=== PATIENT | female | born 1985 | race Caucasian/White ===

== ENCOUNTER 2025-07-22 08:24 | Inpatient (IN) | payer MEDICAID, OTHER ==
[~2025-07-22] VITALS: Ht 147.3 cm; Wt 87.0 kg
[2025-07-22 08:59] LABS: Hematocrit 42.1 % (36.0-46.0); Hemoglobin 14.0 g/dL (12.2-16.2); Mean Corpuscular Hemoglobin 31.9 pg (28.0-32.0); Mean Corpuscular Volume 95.6 fL (80.0-100.0); Nucleated Red Blood Cells % 0.0 %
[2025-07-22 09:07] LABS: Urine Protein, UAD TRACE (Negative)
[2025-07-22 09:08] LABS: Potassium 3.7 mmol/L (3.5-5.1); Sodium 144 mmol/L (136-145)
[2025-07-22 09:09] LABS: Anion Gap 10 (5-15); Calcium 9.1 mg/dL (8.7-10.4); Carbon Dioxide 24 mmol/L (20-31)
--- NOTE | 2025-07-22 09:09 | ED.PDOC ---
General HPI Comments A 39 YEAR OLD FEMALE PRESENTS TO THE ED WITH COMPLAINT OF FLANK PAIN. PATIENT REPORTS THAT SHE HAS BEEN EXPERIENCING RIGHT SIDED FLANK PAIN WITH ASSOCIATED RUQ ABDOMINAL PAIN, DECREASED URINE OUTPUT, AND DYSURIA FOR THE PAST 1-2 WEEKS ALONG WITH NAUSEA/VOMITING SINCE 1AM THIS MORNING. PATIENT RELAYS THAT SHE WAS DIAGNOSED WITH PYELONEPHRITIS ON SUNDAY AT URGENT CARE. PATIENT DENIES FEVER, CHILLS, SHORTNESS OF BREATH, CHEST PAIN, HEMATURIA, HEADACHE, OR OTHER COMPLAINTS. NO OTHER SYMPTOMS OR MODIFYING FACTORS AT THIS TIME. PATIENT IS ALERT, ORIENTED X 4, AND HAS STEADY GAIT. Chief Complaint: Flank Pain Time Seen by MD: 09:05 Reviewed notes: Nurses Notes, Medications, Allergies Allergies: Coded Allergies: NO KNOWN ALLERGIES (Unverified , 07/22/25) Information Source: Patient Mode of Arrival: Ambulatory Severity: Moderate Timing: Weeks Duration: Since onset Prehospital treatment: None Onset: Spontaneous Symptoms: Dysuria History of: Other (PYELONEPHRITIS) Location: (R) Flank associated signs and symptoms: Abdominal Pain, Nausea, Vomiting, Flank Pain, Dysuria Past Medical History PAST MEDICAL HISTORY: Gallstones, HTN Surgical History: Denies all surgeries DEBT AND BUDGET COUNSELOR History: No Pertinent DEBT AND BUDGET COUNSELOR History Family History Family History: Reviewed,noncontributory to illness Social History Smoker: Non-Smoker Alcohol: Denies ETOH Use Drugs: Denies Drug Use Lives In: Home Constitutional: denies: chills, diaphoresis, fatigue, fever, malaise, sweats, weakness, others EENTM: denies: blurred vision, double vision, ear bleeding, ear discharge, ear drainage, ear pain, ear ringing, eye pain, eye redness, hearing loss, mouth pain, mouth swelling, nasal discharge, nose bleeding, nose congestion, nose pain, photophobia, tearing, throat pain, throat swelling, voice changes, others Respiratory: denies: cough, hemoptysis, orthopnea, SOB at rest, shortness of breath, SOB with excertion, stridor, wheezing, others Cardiovascular: denies: chest pain, dizzy spells, diaphoresis, Dyspnea on exertion, edema, irregular heart beat, left arm pain, lightheadedness, palpitations, PND, syncope, others Gastrointestinal: reports: abdominal pain, nausea, vomiting; denies: abdomen distended, blood streaked bowels, constipated, diarrhea, dysphagia, difficulty swallowing, hematemesis, melena, poor appetite, poor fluid intake, rectal bleeding, rectal pain, others Genitourinary: reports: dysuria, flank pain, frequency; denies: abnormal vagina bleeding, burning, dyspareunia, hematuria, incontinence, pain, , vagina discharge, urgency, others Neurological: denies: dizziness, fainting, headache, left sided numbness, left sided weakness, numbness, paresthesia, pre-existing deficit, right sided numbne ss, right sided weakness, seizure, speech problems, tingling, tremors, weakness, others Musculoskeletal: denies: back pain, gout, joint pain, joint swelling, muscle pain, muscle stiffness, neck pain, others Integumetry: denies: bruises, change in color, change in hair/nails, dryness, laceration, lesions, lumps, rash, wounds, others Allergic/Immunocompromised: denies: Difficulty Healing, Frequent Infections, Hives, Itching, others Hematologic/Lymphatic: denies: anemia, blood clots, easy bleeding, easy bruising, swollen glands, others Endocrine: denies: excessive hunger, excessive sweating, excessive thirst, excessive urination, flushing, intolerance to cold, intolerance to heat, unexplained weight gain, unexplained weight loss, others Psychiatric: denies: anxiety, bipolar disorder, depression, hopeless, panic disorder, schizophrenia, sleepless, suicidal, others All Other Systems: Reviewed and Negative Physical Exam General Appearance: Mild Distress, Normal HEENT: Normal ENT Inspection, PERRL/EOMI, Pharynx Normal, TMs Normal Neck: Full Range of Motion, Non-Tender, Normal, Normal Inspection Respiratory: Chest Non-Tender, Lungs Clear, No Accessory Muscle Use, No Respiratory Distress, Normal Breath Sounds Cardiovascular: No Edema, No JVD, No Murmur, No Gallop, Normal Peripheral Pulses, Regular Rate/Rhythm Breast Exam: Deferred Gastrointestinal: No Organomegaly, No Pulsatile Mass, Normal Bowel Sounds, Soft, Tenderness (RIGHT FLANK TO RIGHT UPPER ABD WITH GUARDING, NO REBOUND TENDERNESS, +CVA TENDERNESS. ) Genitalia: Deferred Pelvic: Normal External Exam Rectal: Deferred Extremities: No calf tenderness, Normal capillary refill, Normal inspection, Normal range of motion, Non-tender, No pedal edema Musculoskeletal : Apperance: Normal Neurologic: Alert, statement services representative II-XII nml as Tested, No Motor Deficits, Normal Affect, Normal Mood, No Sensory Deficits Cerebellar Function: Normal Reflexes: Normal Skin: Dry, Normal Color, Warm Peripheral Pulses: 2+ carotid (R), 2+ carotid (L) Lymphatic: No Adenopathy Was a procedure done? Was a procedure done?: No Differential Diagnosis Kidney stone (Female): Pyelonephritis, Urolithiasis Kidney stone (Male): N/A Urinary Problem (Female): Pyelonephritis, Urolithiasis, UTI X-Ray, Labs, Meds, VS Vital Signs Date Time Temp Pulse Resp B/P (MAP) Pulse Ox O2 Delivery O2 Flow Rate FiO2 07/22/25 10:30 66 18 171/101 07/22/25 10:21 175/101 07/22/25 10:21 175/101 07/22/25 10:06 97.7 66 18 175/101 (125) 98 97.7 07/22/25 08:27 97.6 82 18 157/98 100 97.6 Lab Test 07/22/25 09:44 07/22/25 08:48 07/22/25 08:42 Range/Units Lactic Acid Level 1.5 0.4-2.0 mmol/L White Blood Count 21.3 H 4.4-10.8 10^3/uL Red Blood Count 4.40 4.0-5.20 10^6/uL Hemoglobin 14.0 12.2-16.2 g/dL Hematocrit 42.1 36.0-46.0 % Mean Corpuscular Volume 95.6 80.0-100.0 fL Mean Corpuscular Hemoglobin 31.9 28.0-32.0 pg Mean Corpuscular Hemoglobin Concent 33.3 32.0-36.0 g/dL Red Cell Distribution Width 14.8 H 11.8-14.3 % Platelet Count 577 H 140-450 10^3/uL Mean Platelet Volume 5.9 L 6.9-10.8 fL Neutrophils (%) (Auto) 83.8 H 37.0-80.0 % Lymphocytes (%) (Auto) 9.6 L 10.0-50.0 % Monocytes (%) (Auto) 5.9 0.0-12.0 % Eosinophils (%) (Auto) 0.4 0.0-7.0 % Basophils (%) (Auto) 0.3 0.0-2.0 % Neutrophils # (Auto) 17.8 H 1.6-8.6 10 ^3/uL Lymphocytes # (Auto) 2.1 0.4-5.4 10 ^3/uL Monocytes # (Auto) 1.3 0-1.3 10 ^3/uL Eosinophils # (Auto) 0.1 0-0.8 10 ^3/uL Basophils # (Auto) 0.1 0-0.2 10 ^3/uL Nucleated Red Blood Cells 0.0 % Sodium Level 142 136-145 mmol/L Potassium Level 3.7 3.5-5.1 mmol/L Chloride Level 111 H 98-107 mmol/L Carbon Dioxide Level 23 20-31 mmol/L Anion Gap 8 5-15 Blood Urea Nitrogen 9 9-23 mg/dL Creatinine 1.08 H 0.550-1.02 mg/dL Glomerular Filtration Rate Calc 66 >90 mL/min BUN/Creatinine Ratio 8.3 L 10.0-20.0 Serum Glucose 94 74-106 mg/dL Calcium Level 9.1 8.7-10.4 mg/dL Total Bilirubin 0.4 0.2-1.0 mg/dL Aspartate Amino Transferase (AST) 18 13-40 U/L Alanine Aminotransferase (ALT) 12 7-40 U/L Alkaline Phosphatase 106 46-116 U/L Total Protein 7.3 5.7-8.2 g/dL Albumin 4.7 3.2-4.8 g/dL Urine Color Light-orange Yellow Urine Clarity Turbid H Clear Urine pH 6.0 5.0-9.0 Urine Specific [place] 1.022 1.001-1.035 Urine Protein Trace H Negative Urine Ketones Negative Negative Urine Blood 3+ H Negative /uL Urine Nitrite Negative Negative Urine Bilirubin Negative Negative Urine Urobilinogen Normal Negative mg/dL Urine Leukocyte Esterase 1+ Negative /uL Urine RBC 108 0 - 4 /hpf Urine Microscopic WBC 25 H 0-5 /HPF Urine Squamous Epithelial Cells Mod <5 /hpf Urine Bacteria Mod H None Seen /hpf Urine Mucus Few None Seen Urine Glucose Normal Normal mg/dL Current Medications Medications (Trade) Dose Ordered Sig/Davina Route Start Time Stop Time Status Last Admin Sodium Chloride 1,000 ml @ 1,000 mls/hr Q1H ONCE IV 07/22/25 09:30 07/22/25 10:29 DC 07/22/25 10:30 Ondansetron HCl (Zofran) 4 mg ONCE ONCE IV 07/22/25 09:30 07/22/25 09:31 DC 07/22/25 10:29 Morphine Sulfate 4 mg ONCE ONCE IV 07/22/25 10:15 07/22/25 10:16 DC 07/22/25 10:30 Ceftriaxone Sodium 50 ml @ 100 mls/hr ONCE ONCE IV 07/22/25 10:15 07/22/25 10:44 DC 07/22/25 10:28 Losartan Potassium (Cozaar Tablet) 100 mg ONCE ONCE PO 07/22/25 10:15 07/22/25 10:16 DC 07/22/25 10:21 Hydrochlorothiazide (hydroCHLOROthiazide TABLET) 25 mg ONCE ONCE PO 07/22/25 10:15 07/22/25 10:16 DC 07/22/25 10:21 Tamsulosin HCl (Flomax) 0.8 mg ONCE ONCE PO 07/22/25 11:00 07/22/25 11:01 DC 07/22/25 11:17 [place] [address] Ph: [phone] DIAGNOSTIC IMAGING Diagnostic Imaging Report : [id number] Signed PATIENT: AN IBARRA ACCT: [id number] UNIT: [id number] : 1985 LOC: ER ROOM / BED: / AGE / SEX: 39 / F ADM STATUS: REG ER SERVICE 0904 ORDERING PHYSICIAN: VALENTIN MOJICA PROCEDURE(s): ABPL - CT AB PEL WO CON-NO ORAL OR IV REASON: RIGHT FLANK PAIN ORDER NUMBER(s): [id number], ACCESSION NUMBER(s): [id number] EXAM: CT CT AB PEL WO CON-NO ORAL OR IV HISTORY: RIGHT FLANK PAIN COMPARISON STUDY: None TECHNIQUE: Multidetector CT of the abdomen and pelvis was performed from lung bases to pubic symphysis. Imaging was performed without IV contrast. Axial, coronal, and sagittal multiplanar reformats were obtained from the axial data set by the technologist. RADIATION DOSE: CTDI vol 15.4 mGy. DLP 841.5 mGy.cm FINDINGS: Limited evaluation of the solid organs in the absence of IV contrast. Lungs: Basilar atelectasis/scarring. Liver: Unremarkable. Spleen: Unremarkable. Pancreas: Unremarkable. Gallbladder: Unremarkable. Adrenals: Unremarkable Kidneys: 3 mm calculus situated within the distal right ureter near the ureterovesicular junction with mild upstream hydroureteronephrosis and mild right perinephric stranding. Punctate nonobstructing right renal calculus. The left kidney is unremarkable. Pelvic Viscera: Unremarkable. Vasculature: Unremarkable. Retroperitoneum: Unremarkable. Bowel: No bowel obstruction. The appendix is normal. Musculoskeletal: Unremarkable. Soft tissues: Small fat containing umbilical hernia with minimal stranding. IMPRESSION: 1. 3 mm calculus situated within the distal right ureter near the ureterovesicular junction with mild upstream hydroureteronephrosis and mild right perinephric stranding. 2. Punctate nonobstructing right renal calculus. 3. Additional findings as detailed. ATED BY: FAIZAN WOODS MD DICTATED DATE/TIME: 07/22/25957 SIGNED BY: FAIZAN WOODS MD SIGNED DATE/TIME: 07/22/25957 CC: X-Ray, Labs, Meds, VS Comment EXTERNAL MEDICAL RECORDS REVIEWED: [NONE] INDEPENDENT HISTORIANS: [NONE] SOCIAL DETERMINANTS OF HEALTH: [NONE] LABS ORDERED: CBC, BMP, UA, URINE CULTURE, BLOOD CULTURE REVIEWED AND INTERPRETED RESULTS: CT ABD/PEL IMAGING ORDERED: CT ABD/PEL TREATMENTS ORDERED: ZOFRAN 4MG IV, NS 1L IV, MORPHINE 4MG IV, ROCEPHIN 1G IV, TORADOL 30MG IVP PROCEDURES PERFORMED: NONE CRITICAL CARE TIME: NONE I HAVE DISCUSSED THE PATIENT WITH THE ATTENDING PHYSICIAN DR. HUDDLESTON AND HE AGREES WITH THE PATIENT'S PLAN OF CARE AND DISPOSITION. BASED ON HISTORY OF PRESENT ILLNESS, AND PHYSICAL EXAM, PATIENT WILL BE ADMITTED TO THE HOSPITAL FOR FURTHER IN-PATIENT EVALUATION AND TREATMENT. Time of 1ST Reevaluation: 09:30 Reevaluation 1ST: Unchanged Time of 2ND Reevaluation: 10:00 Reevaluation 2ND: Unchanged Patient Education/Counseling: Diagnosis, Treatment Family Education/Counseling: Diagnosis, Treatment, No Family Present SEPSIS Sepsis Screen Date sepsis recognized/suspect: Jul 22, 2025 Time Sepsis recognized/suspect: 826 Recent Procedure: No On Antibiotic Therapy: Yes (CIPRO) Respiratory Rate >20: No Heart Rate >90: No Temp<36 C (96.8 F) or >38.3 C: No SBP <90 or MAP <65 mmHG: No New Acute Mental Status Change: No Is the patient on CPAP, BIPAP,: No Physician Orders Ct Ab Pel Wo Con-No Oral Or Iv (07/22/25 09:04) Heplock Iv (07/22/25 ) Blood Culture (07/22/25 09:22) Urine Bacterial Culture (07/22/25 09:22) Vital Signs Date Time Temp Pulse Resp B/P (MAP) Pulse Ox O2 Delivery O2 Flow Rate FiO2 07/22/25 10:30 66 18 171/101 07/22/25 10:21 175/101 07/22/25 10:21 175/101 07/22/25 10:06 97.7 66 18 175/101 (125) 98 97.7 07/22/25 08:27 97.6 82 18 157/98 100 97.6 Laboratory Tests Test 07/22/25 08:48 07/22/25 09:44 White Blood Count 21.3 10^3/uL (4.4-10.8) H Lactic Acid Level 1.5 mmol/L (0.4-2.0) Medications Medications Dose Ordered Sig/Davina Route Start Time Stop Time Status Last Admin Dose Admin Ceftriaxone Sodium 50 ml @ 100 mls/hr ONCE ONCE IV 07/22/25 10:15 07/22/25 10:44 DC 07/22/25 10:28 Hydrochlorothiazide 25 mg ONCE ONCE PO 07/22/25 10:15 07/22/25 10:16 DC 07/22/25 10:21 Losartan Potassium 100 mg ONCE ONCE PO 07/22/25 10:15 07/22/25 10:16 DC 07/22/25 10:21 Morphine Sulfate 4 mg ONCE ONCE IV 07/22/25 10:15 07/22/25 10:16 DC 07/22/25 10:30 Ondansetron HCl 4 mg ONCE ONCE IV 07/22/25 09:30 07/22/25 09:31 DC 07/22/25 10:29 Sodium Chloride 1,000 ml @ 1,000 mls/hr Q1H ONCE IV 07/22/25 09:30 07/22/25 10:29 DC 07/22/25 10:30 Tamsulosin HCl 0.8 mg ONCE ONCE PO 07/22/25 11:00 07/22/25 11:01 DC 07/22/25 11:17 Departure 1 Departure Time of Disposition: 10:05 Impression: Primary Impression: Acute pyelonephritis Additional Impressions: Kidney stone Hydroureteronephrosis Disposition: ADMITTED INPATIENT Condition: Serious Critical Care Note Critical Care Time?: No Stability Stability form required: No Heart Score Heart Score: Heart Score Response (Comments) Value History N/A 0 EKG N/A 0 Age N/A 0 Risk Factors N/A 0 Troponin N/A 0 Total 0 I personally scribed for VALENTIN MOJICA ([email or web address]) on 07/22/25 at 09:09. Electronically submitted by Jameel Soto ([email or web address]). I personally scribed for VALENTIN MOJICA ([email or web address]) on 07/22/25 at 10:05. Electronically submitted by Jameel Soto ([email or web address]). VALENTIN MOJICA Jul 22, 2025 09:09
[2025-07-22 09:10] LABS: Chloride 110 mmol/L (98-107)
[2025-07-22 09:14] LABS: BUN/Creatinine Ratio 8.4 (10.0-20.0); Blood Urea Nitrogen 9 mg/dL (9-23); Glucose 94 mg/dL (74-106)
[2025-07-22] MEDS ORDERED: KETOROLAC TROMETH 30 MG/ML 1ML VIAL IV ONE (09:30)
[2025-07-22 09:42] LABS: Alanine Aminotransferase 12 U/L (7-40); Albumin 4.7 g/dL (3.2-4.8); Alkaline Phosphatase 106 U/L (46-116); Anion Gap 8 (5-15); BUN/Creatinine Ratio 8.3 (10.0-20.0); Bilirubin, Total 0.4 mg/dL (0.2-1.0); Blood Urea Nitrogen 9 mg/dL (9-23); Calcium 9.1 mg/dL (8.7-10.4); Carbon Dioxide 23 mmol/L (20-31); Glucose 94 mg/dL (74-106); Potassium 3.7 mmol/L (3.5-5.1); Sodium 142 mmol/L (136-145); Total Protein 7.3 g/dL (5.7-8.2)
[2025-07-22 09:45] LABS: Chloride 111 mmol/L (98-107)
--- NOTE | 2025-07-22 10:00 | DVH ---
EXAM: CT CT AB PEL WO CON-NO ORAL OR IV HISTORY: RIGHT FLANK PAIN COMPARISON STUDY: None TECHNIQUE: Multidetector CT of the abdomen and pelvis was performed from lung bases to pubic symphysis. Imaging was performed without IV contrast. Axial, coronal, and sagittal multiplanar reformats were obtained from the axial data set by the technologist. RADIATION DOSE: CTDI vol 15.4 mGy. DLP 841.5 mGy.cm FINDINGS: Limited evaluation of the solid organs in the absence of IV contrast. Lungs: Basilar atelectasis/scarring. Liver: Unremarkable. Spleen: Unremarkable. Pancreas: Unremarkable. Gallbladder: Unremarkable. Adrenals: Unremarkable Kidneys: 3 mm calculus situated within the distal right ureter near the ureterovesicular junction with mild upstream hydroureteronephrosis and mild right perinephric stranding. Punctate nonobstructing right renal calculus. The left kidney is unremarkable. Pelvic Viscera: Unremarkable. Vasculature: Unremarkable. Retroperitoneum: Unremarkable. Bowel: No bowel obstruction. The appendix is normal. Musculoskeletal: Unremarkable. Soft tissues: Small fat containing umbilical hernia with minimal stranding. IMPRESSION: 1. 3 mm calculus situated within the distal right ureter near the ureterovesicular junction with mild upstream hydroureteronephrosis and mild right perinephric stranding. 2. Punctate nonobstructing right renal calculus. 3. Additional findings as detailed.
[2025-07-22] MEDS: hydroCHLOROthiazide 25 MG TAB PO ONE ×2 (10:21→14:46)
[2025-07-22] MEDS: LOSARTAN POTASSIUM 50 MG TAB PO ONE ×2 (10:21→13:33)
[2025-07-22] MEDS: ONDANSETRON HCL 4 MG/2 ML VIAL IV ONE (10:29)
[2025-07-22] MEDS: SODIUM CHLORIDE 0.9% 1,000 ML IV ONE ×3 (10:30→12:30)
[2025-07-22] MEDS: MORPHINE SULFATE 4 MG/ML SYR/VIAL IV ONE (10:30)
[2025-07-22] MEDS: TAMSULOSIN HYDROCHLORIDE 0.4 MG CAP PO ONE (11:17)
[2025-07-22] MEDS ORDERED: TIZA-142 PO (13:01)
[2025-07-22] MEDS ORDERED: DULO1CAP5 PO (13:01)
[2025-07-22] MEDS ORDERED: LAMO100T44 PO (13:01)
[2025-07-22] MEDS ORDERED: LORA-1121 PO (13:01)
[2025-07-22] MEDS ORDERED: ATOG60TA PO (13:01)
[2025-07-22] MEDS ORDERED: ATOR20TA50 PO (13:01)
[2025-07-22] MEDS ORDERED: HYDR50TA69 PO (13:01)
[2025-07-22] MEDS ORDERED: BUSP30TA PO (13:01)
[2025-07-22] MEDS ORDERED: GABA-1250 PO (13:01)
[2025-07-22] MEDS ORDERED: HYDR25TA5 PO (13:01)
[2025-07-22] MEDS ORDERED: VERA80TA4 PO (13:01)
[2025-07-22] MEDS ORDERED: OMEP-448 PO (13:01)
[2025-07-22] MEDS ORDERED: [UNRECOGNIZED DRUG - CODE] PO (13:01)
[2025-07-22] MEDS ORDERED: LOSA-535 PO (13:01)
--- NOTE | 2025-07-22 13:11 | DVHHP2 ---
History of Present Illness Reason for Visit: Abdominal pain History of Present Illness Greta Nuñez is a 39-year-old female with past medical history of hypertension, hyperlipidemia, bipolar, PTSD, depression, anxiety, and ADHD, who came to the hospital for abdominal pain and right flank pain. The patient states she has been experiencing abdominal, flank pain, and dysuria for 1-2 weeks. She went to urgent care on Sunday07/20/2025, was diagnosed with pyelonephritis, and prescribed antibiotics. This morning, about 0300 she woke up with severe right flank pain and abdominal pain prompting her to come to the hospital. Cardiovascular: HTN, hyperipidemia Psych: Anxiety, Bipolar, Depression, Other (PTSD, ADHD) Past Surgical History: Tonsillectomy Smoke: <1 pack per day ALCOHOL: rare Drugs: Marijuana Lives: with Family Domestic Violence: Neg Review of Systems Constitutional: No: Fever, Chills, Sweats, Weakness, Malaise, Other Eyes: No: Pain, Vision change, Conjunctivae inflammation, Eyelid inflammation, Other, Redness ENT: No: Ear pain, Ear discharge, Nose pain, Nose discharge, Nose congestion, Mouth pain, Mouth swelling, Throat pain, Throat swelling, Other Respiratory: No: Cough, Dry, Shortness of breath, SOB with excertion, Wheezing, Hemoptysis, Pleuritic Pain, Sputum, Wheezing, Other Cardiovascular: No: Chest Pain, Palpitations, Orthopnea, Paroxysmal Noc. Dyspnea, Edema, Lt Headedness, Other Gastrointestinal: Nausea, Vomiting, Abdominal Pain; No: Diarrhea, Constipation, Melena, Hematochezia, Other Genitourinary: No Dysuria, No Frequency, No Incontinence, No Hematuria, No Retention, No Other Musculoskeletal: back pain (right flank); No: other, neck pain, shoulder pain, arm pain, hand pain, leg pain, foot pain Skin: No: Rash, Lesions, Jaundice, Bruising, Other Neurological: No: Weakness, Numbness, Incoordination, Change in speech, Confusion, Seizures, Other Allergies: Coded Allergies: NO KNOWN ALLERGIES (Unverified , 07/22/25) Exam Vital Signs Vital Signs Date Time Temp Pulse Resp B/P (MAP) Pulse Ox O2 Delivery O2 Flow Rate FiO2 07/22/25 10:30 66 18 171/101 07/22/25 10:06 97.7 98 97.7 General Appearance: Alert, Oriented X3, Cooperative, mild distress HEENT: Atraumatic, PERRLA, Mucous membr. moist/pink Respiratory: Clear to auscultation, Normal air movement Cardiovascular: Regular rate, Normal S1, Normal S2 Extremities: No cyanosis, No edema, Normal pulses, No tenderness/swelling Skin: No rashes, No breakdown, No significant lesion Neuro: Normal gait, Normal speech, Strength at 5/5 X4 ext, Normal tone Psych/Mental Status: Mental status NL, Mood NL Labs/Xrays Labs Test 07/22/25 09:44 07/22/25 08:48 07/22/25 08:42 Range/Units Lactic Acid Level 1.5 0.4-2.0 mmol/L White Blood Count 21.3 H 4.4-10.8 10^3/uL Red Blood Count 4.40 4.0-5.20 10^6/uL Hemoglobin 14.0 12.2-16.2 g/dL Hematocrit 42.1 36.0-46.0 % Mean Corpuscular Volume 95.6 80.0-100.0 fL Mean Corpuscular Hemoglobin 31.9 28.0-32.0 pg Mean Corpuscular Hemoglobin Concent 33.3 32.0-36.0 g/dL Red Cell Distribution Width 14.8 H 11.8-14.3 % Platelet Count 577 H 140-450 10^3/uL Mean Platelet Volume 5.9 L 6.9-10.8 fL Neutrophils (%) (Auto) 83.8 H 37.0-80.0 % Lymphocytes (%) (Auto) 9.6 L 10.0-50.0 % Monocytes (%) (Auto) 5.9 0.0-12.0 % Eosinophils (%) (Auto) 0.4 0.0-7.0 % Basophils (%) (Auto) 0.3 0.0-2.0 % Neutrophils # (Auto) 17.8 H 1.6-8.6 10 ^3/uL Lymphocytes # (Auto) 2.1 0.4-5.4 10 ^3/uL Monocytes # (Auto) 1.3 0-1.3 10 ^3/uL Eosinophils # (Auto) 0.1 0-0.8 10 ^3/uL Basophils # (Auto) 0.1 0-0.2 10 ^3/uL Nucleated Red Blood Cells 0.0 % Sodium Level 142 136-145 mmol/L Potassium Level 3.7 3.5-5.1 mmol/L Chloride Level 111 H 98-107 mmol/L Carbon Dioxide Level 23 20-31 mmol/L Anion Gap 8 5-15 Blood Urea Nitrogen 9 9-23 mg/dL Creatinine 1.08 H 0.550-1.02 mg/dL Glomerular Filtration Rate Calc 66 >90 mL/min BUN/Creatinine Ratio 8.3 L 10.0-20.0 Serum Glucose 94 74-106 mg/dL Calcium Level 9.1 8.7-10.4 mg/dL Total Bilirubin 0.4 0.2-1.0 mg/dL Aspartate Amino Transferase (AST) 18 13-40 U/L Alanine Aminotransferase (ALT) 12 7-40 U/L Alkaline Phosphatase 106 46-116 U/L Total Protein 7.3 5.7-8.2 g/dL Albumin 4.7 3.2-4.8 g/dL Urine Color Light-orange Yellow Urine Clarity Turbid H Clear Urine pH 6.0 5.0-9.0 Urine Specific [place] 1.022 1.001-1.035 Urine Protein Trace H Negative Urine Ketones Negative Negative Urine Blood 3+ H Negative /uL Urine Nitrite Negative Negative Urine Bilirubin Negative Negative Urine Urobilinogen Normal Negative mg/dL Urine Leukocyte Esterase 1+ Negative /uL Urine RBC 108 0 - 4 /hpf Urine Microscopic WBC 25 H 0-5 /HPF Urine Squamous Epithelial Cells Mod <5 /hpf Urine Bacteria Mod H None Seen /hpf Urine Mucus Few None Seen Urine Glucose Normal Normal mg/dL EXAM: CT CT AB PEL WO CON-NO ORAL OR IV FINDINGS: Limited evaluation of the solid organs in the absence of IV contrast. Lungs: Basilar atelectasis/scarring. Liver: Unremarkable. Spleen: Unremarkable. Pancreas: Unremarkable. Gallbladder: Unremarkable. Adrenals: Unremarkable Kidneys: 3 mm calculus situated within the distal right ureter near the ureterovesicular junction with mild upstream hydroureteronephrosis and mild right perinephric stranding. Punctate nonobstructing right renal calculus. The left kidney is unremarkable. Pelvic Viscera: Unremarkable. Vasculature: Unremarkable. Retroperitoneum: Unremarkable. Bowel: No bowel obstruction. The appendix is normal. Musculoskeletal: Unremarkable. Soft tissues: Small fat containing umbilical hernia with minimal stranding. IMPRESSION: 1. 3 mm calculus situated within the distal right ureter near the ureterovesicular junction with mild upstream hydroureteronephrosis and mild right perinephric stranding. 2. Punctate nonobstructing right renal calculus. 3. Additional findings as detailed. SEPSIS Sepsis Screen Date sepsis recognized/suspect: Jul 22, 2025 Time Sepsis recognized/suspect: 826 Recent Procedure: No On Antibiotic Therapy: Yes (CIPRO) Respiratory Rate >20: No Heart Rate >90: No Temp<36 C (96.8 F) or >38.3 C: No SBP <90 or MAP <65 mmHG: No New Acute Mental Status Change: No Is the patient on CPAP, BIPAP,: No Physician Orders Ct Ab Pel Wo Con-No Oral Or Iv (07/22/25 09:04) Heplock Iv (07/22/25 ) Blood Culture (07/22/25 09:22) Urine Bacterial Culture (07/22/25 09:22) Admit (07/22/25 12:18) Code Status (07/22/25 12:18) Hydrocodone-Acet 5/325mg Tab ([place] 5/32 (07/22/25 12:30) Ondansetron Hcl (Zofran) (07/22/25 12:30) Docusate Sodium Capsule (Colace Capsule) (07/22/25 12:30) Complete Blood Count (07/23/25 04:00) Comprehensive Metabolic Panel (07/23/25 04:00) Cardiac Diet-2gna,Lofat,Lochol (07/22/25 Lunch) Condition: Serious (07/22/25 12:18) Acetaminophen Tablet (Tylenol Tablet) (07/22/25 12:30) Tamsulosin Hydrochloride (Flomax) (07/23/25 18:00) NS (07/22/25 12:30) NS (07/22/25 12:30) Ceftriaxone Ivpb Rocephin (07/23/25 09:00) Vital Signs Date Time Temp Pulse Resp B/P (MAP) Pulse Ox O2 Delivery O2 Flow Rate FiO2 07/22/25 10:30 66 18 171/101 07/22/25 10:21 175/101 07/22/25 10:21 175/101 07/22/25 10:06 97.7 66 18 175/101 (125) 98 97.7 07/22/25 08:27 97.6 82 18 157/98 100 97.6 Laboratory Tests Test 07/22/25 08:48 07/22/25 09:44 White Blood Count 21.3 10^3/uL (4.4-10.8) H Lactic Acid Level 1.5 mmol/L (0.4-2.0) Medications Medications Dose Ordered Sig/Davina Route Start Time Stop Time Status Last Admin Dose Admin Ceftriaxone Sodium 50 ml @ 100 mls/hr ONCE ONCE IV 07/22/25 10:15 07/22/25 10:44 DC 07/22/25 10:28 100 MLS/HR Hydrochlorothiazide 25 mg ONCE ONCE PO 07/22/25 10:15 07/22/25 10:16 DC 07/22/25 10:21 25 MG Losartan Potassium 100 mg ONCE ONCE PO 07/22/25 10:15 07/22/25 10:16 DC 07/22/25 10:21 100 MG Morphine Sulfate 4 mg ONCE ONCE IV 07/22/25 10:15 07/22/25 10:16 DC 07/22/25 10:30 4 MG Ondansetron HCl 4 mg ONCE ONCE IV 07/22/25 09:30 07/22/25 09:31 DC 07/22/25 10:29 4 MG Sodium Chloride 1,000 ml @ 1,000 mls/hr Q1H ONCE IV 07/22/25 09:30 07/22/25 10:29 DC 07/22/25 10:30 1,000 MLS/HR Tamsulosin HCl 0.8 mg ONCE ONCE PO 07/22/25 11:00 07/22/25 11:01 DC 07/22/25 11:17 0.8 MG Assessment/Plan Assessment/Plan Assessment: Hydroureteronephrosis, Obstructing renal calculi, Intractable abdominal pain, Hypertension, Hyperlipidemia, PTSD, Depression, Anxiety, Plan: Admit to Med-Surg, IV hydration, IV pain management, Start Flomax, Pain management, IV antiemetics, Strain all urine for stone, Home medications reconciled, Plan discussed with: Patient My Orders Orders - SUNNY LAWSON [employer] Procedure Category Date Status Time Admit ADMIT 07/22/25 Verified 12:18 Code Status CODE 07/22/25 Verified 12:18 Hydrocodone-Acet PHA 07/22/25 Verified 5/325mg Tab ([place] 12:30 Ondansetron Hcl PHA 07/22/25 Verified (Zofran) 12:30 Docusate Sodium PHA 07/22/25 Verified Capsule (Colace 12:30 Complete Blood Count LAB 07/23/25 Verified 04:00 Comprehensive LAB 07/23/25 Verified Metabolic Panel 04:00 Cardiac DIET 07/22/25 Verified Diet-2gna,Lofat,Lochol Lunch Condition: Serious KATIE 07/22/25 Verified 12:18 Acetaminophen Tablet PHA 07/22/25 Verified (Tylenol Tablet) 12:30 Tamsulosin PHA 07/23/25 Verified Hydrochloride (Flomax) 18:00 NS PHA 07/22/25 Verified 12:30 NS PHA 07/22/25 Verified 12:30 Ceftriaxone Ivpb PHA 07/23/25 Verified Rocephin 09:00 Date of Service: Jul 22, 2025 Billing Provider: SUNNY LAWSON Common Visit Codes: [id number] INP/OBS CARE (MOD) SUNNY LAWSON Jul 22, 2025 13:11
[2025-07-22 13:15] VITALS: BP 145/80; PULSE 67; RESP 15; TEMP 98.1; O2SAT 99
[2025-07-22] MEDS: HYDROmorphone HCL 2 MG/ML VL/or syr IV ONE (13:32)
[2025-07-22] MEDS: GABAPENTIN 300 MG CAP PO SCH (13:33)
[2025-07-22 14:16] VITALS: BP 145/80; PULSE 67; RESP 15; TEMP 98.1; O2SAT 99
[2025-07-22] MEDS: ONDANSETRON HCL 4 MG/2 ML VIAL IV PRN (14:26)
[2025-07-22] MEDS: KETOROLAC TROMETH 30 MG/ML 1ML VIAL IV PRN (15:36)
[2025-07-22 16:34] VITALS: BP 150/103; PULSE 61; RESP 16; TEMP 98.8; O2SAT 99
[2025-07-22] MEDS: ACETAMINOPHEN 325 MG TAB PO PRN (20:55)
[2025-07-22 21:00] VITALS: BP 128/69; PULSE 79; RESP 18; TEMP 98.5; O2SAT 97
[2025-07-22] MEDS: ATORVASTATIN 20 MG TAB PO SCH (23:05)
[2025-07-22] MEDS: VERAPAMIL HCL 40 MG TAB PO SCH (23:09)
[2025-07-23] VITALS (8 sets, daily range): BP systolic 114–171; BP diastolic 55–100; PULSE 66–79; RESP 18–21; TEMP 97.7–98.8; O2SAT 96–99
[2025-07-23] MEDS: lamoTRIgine 100 MG TAB PO SCH (00:16)
[2025-07-23] MEDS: hydrOXYzine 25 MG TAB or CAP PO SCH (00:16)
[2025-07-23] MEDS: hydroCHLOROthiazide 25 MG TAB PO SCH (05:49)
[2025-07-23 06:34] LABS: Hematocrit 37.5 % (36.0-46.0); Hemoglobin 12.5 g/dL (12.2-16.2); Mean Corpuscular Hemoglobin 31.8 pg (28.0-32.0); Mean Corpuscular Volume 95.3 fL (80.0-100.0); Nucleated Red Blood Cells % 0.0 %
[2025-07-23 07:01] LABS: Alanine Aminotransferase 10 U/L (7-40); Alkaline Phosphatase 84 U/L (46-116); Anion Gap 8 (5-15); Calcium 8.8 mg/dL (8.7-10.4); Carbon Dioxide 25 mmol/L (20-31); Potassium 3.6 mmol/L (3.5-5.1); Sodium 143 mmol/L (136-145)
[2025-07-23 07:02] LABS: BUN/Creatinine Ratio 8.0 (10.0-20.0); Glucose 86 mg/dL (74-106)
[2025-07-23 07:03] LABS: Total Protein 6.2 g/dL (5.7-8.2)
[2025-07-23 07:04] LABS: Albumin 3.9 g/dL (3.2-4.8); Bilirubin, Total 0.4 mg/dL (0.2-1.0)
[2025-07-23 07:14] LABS: Blood Urea Nitrogen 8 mg/dL (9-23); Chloride 110 mmol/L (98-107)
[2025-07-23] MEDS: OMEPRAZOLE 20 MG CAP PO SCH (09:41)
[2025-07-23] MEDS: LOSARTAN POTASSIUM 50 MG TAB PO SCH (09:47)
--- NOTE | 2025-07-23 10:46 | DVHPN2 ---
Progress Note Date Seen: Jul 23, 2025 Medical Necessity Reason Pt with a Central, PICC or Fol: No Subjective Patient reports: No new complaints Review of Systems: HEENT:Normal, CVS:Normal, RESPIRATORY:Normal, GI:Normal, :Normal, MSK:Normal, NEURO:Normal Objective vital signs Vital Sign Date Time Temp Pulse Resp B/P (MAP) Pulse Ox O2 Delivery O2 Flow Rate FiO2 07/23/25 09:47 153/91 07/23/25 09:00 97.7 75 18 98 97.7 07/22/25 20:00 Room Air* 0 21 Total Intake and Output 07/22/25 07/22/25 07/23/25 15:00 23:00 07:00 Intake Total 750 ml 800 ml Balance 750 ml 800 ml medications Current Medications Medications Dose Ordered Sig/Davina Route Start Time Stop Time Status Last Admin Dose Admin Acetaminophen/ Hydrocodone Bitart 1 tab Q4HP PRN PO 07/22/25 12:30 Ondansetron HCl 4 mg Q4HP PRN IV 07/22/25 12:30 07/22/25 14:26 4 MG Docusate Sodium 100 mg BIDPRN PRN PO 07/22/25 12:30 Acetaminophen 650 mg Q6HP PRN PO 07/22/25 12:30 07/23/25 05:54 650 MG Tamsulosin HCl 0.4 mg QPM PO 07/23/25 18:00 Ceftriaxone Sodium 50 ml @ 100 mls/hr DAILY@09 IV 07/23/25 09:00 07/23/25 09:45 100 MLS/HR Ketorolac Tromethamine 30 mg Q6HPRN PRN IV 07/22/25 12:30 07/27/25 12:29 07/23/25 09:59 30 MG Atorvastatin Calcium 20 mg HS PO 07/22/25 22:00 07/22/25 23:05 20 MG Duloxetine HCl 30 mg BID PO 07/22/25 22:00 07/23/25 09:45 30 MG Gabapentin 300 mg TID PO 07/22/25 14:00 07/23/25 05:49 300 MG Hydrochlorothiazide 25 mg QAM PO 07/23/25 07:00 07/23/25 05:49 25 MG Lamotrigine 100 mg BID PO 07/22/25 22:00 07/23/25 09:45 100 MG Lorazepam 0.5 mg DAILYP PRN PO 07/22/25 12:45 Patient Own Medication 1 tab DAILY PO 07/23/25 10:00 Buspirone HCl 30 mg BID PO 07/22/25 22:00 07/23/25 09:45 30 MG Patient Own Medication 1 tab BID PO 07/22/25 22:00 Hydroxyzine Pamoate 50 mg HS PO 07/22/25 22:00 07/23/25 00:16 50 MG Losartan Potassium 100 mg DAILY PO 07/23/25 10:00 07/23/25 09:47 100 MG Omeprazole 40 mg DAILY PO 07/23/25 10:00 Patient Own Medication 1 tab BIDPRN PRN PO 07/22/25 16:15 Verapamil HCl 80 mg TID PO 07/22/25 22:00 07/22/25 23:09 80 MG Hydralazine HCl 10 mg Q6HP PRN IV 07/22/25 13:15 Examination: GENERAL:Normal, HEENT:Normal, NECK:Normal, LUNGS:Normal, CVS:Normal, ABDOMEN:Normal, MSK:Normal, SKIN:Normal, NEURO:Normal, :Normal, :Abnormal (right flank tenderness) laboratory and microbiology Laboratory Tests 07/23/25 06:00 Test 07/23/25 06:00 Range/Units Serum Glucose 86 74-106 mg/dL Microbiology Date/Time Source Procedure Growth Status 07/22/25 09:45 Blood Blood Culture - Preliminary NO GROWTH AFTER 24 HOURS OF INCUBATION. Resulted 07/22/25 08:42 Voided Urine Urine Culture - Preliminary Resulted Problem List/Assessment/Plan Problem List/Assessment/Plan #1 right renal stone with hydronephrosis: ivf, mannitol, urology #2 uti with sepsis: iv rocephin #3 morbid obesity #4 htn #5 anxiety #6 migraines #7 tobacco abuse: advised to quit, refused nicotine patch- time spent 11 mins Plan discussed with: Patient My Orders My Orders Orders - CROW CAMPBELL MD Procedure Category Date Status Time * Urology Consult CONS 07/23/25 Verified 10:40 NS PHA 07/23/25 Verified 10:45 Date of Service: Jul 23, 2025 Billing Provider: CROW CAMPBELL MD Common Visit Codes: [id number] INP/OBS CARE(HIGH) Secondary Visit Codes: [id number] CHNG SMOKING >10MIN CROW CAMPBELL MD Jul 23, 2025 10:46
[2025-07-23] MEDS: MANNITOL FTV 25% 12.5 GM/50 ML 50 ML IV ONE (13:29)
[2025-07-23] MEDS: SODIUM CHLORIDE 0.9% 1,000 ML IV SCH (13:31)
[2025-07-23] MEDS: TAMSULOSIN HYDROCHLORIDE 0.4 MG CAP PO SCH (17:13)
[2025-07-24 01:00] VITALS: BP 143/72; PULSE 73; RESP 19; TEMP 98.3; O2SAT 97
[2025-07-24 05:00] VITALS: BP 146/79; PULSE 66; RESP 18; TEMP 97.8; O2SAT 98
[2025-07-24 05:59] LABS: Hematocrit 38.5 % (36.0-46.0); Hemoglobin 13.3 g/dL (12.2-16.2); Mean Corpuscular Hemoglobin 32.5 pg (28.0-32.0); Mean Corpuscular Volume 94.3 fL (80.0-100.0); Nucleated Red Blood Cells % 0.0 %
[2025-07-24 06:08] LABS: Anion Gap 8 (5-15); Calcium 9.1 mg/dL (8.7-10.4); Carbon Dioxide 25 mmol/L (20-31); Potassium 3.7 mmol/L (3.5-5.1); Sodium 142 mmol/L (136-145)
[2025-07-24 06:14] LABS: BUN/Creatinine Ratio 9.2 (10.0-20.0); Glucose 89 mg/dL (74-106)
[2025-07-24 06:19] LABS: Blood Urea Nitrogen 8 mg/dL (9-23); Chloride 109 mmol/L (98-107)
[2025-07-24 09:00] VITALS: BP 139/82; PULSE 70; RESP 18; TEMP 98; O2SAT 97
--- NOTE | 2025-07-24 11:28 | DVHPN2 ---
Reviewed: Care Plan, H&P, Labs, Medications, Previous Orders, Radiology Changes from previous H/P or p: No Changes Eyes: No Pain, No Vision change, No Conjunctivae inflammation, No Eyelid inflammation, No Other, No Redness ENT: No Ear pain, No Ear discharge, No Nose pain, No Nose discharge, No Nose congestion, No Mouth pain, No Mouth swelling, No Throat pain, No Throat swelling, No Other Cardiovascular: No Chest Pain, No Palpitations, No Orthopnea, No Paroxysmal Noc. Dyspnea, No Edema, No Lt Headedness, No Other Respiratory: No Cough, No Dry, No Shortness of breath, No SOB with excertion, No Wheezing, No Hemoptysis, No Pleuritic Pain, No Sputum, No Other Gastrointestinal: Nausea, Vomiting, Abdominal Pain; No Diarrhea, No Constipation, No Melena, No Hematochezia, No Other Genitourinary: No Dysuria, No Frequency, No Incontinence, No Hematuria, No Retention, No Other Musculoskeletal: No other, No neck pain, No shoulder pain, No arm pain; back pain (right flank); No hand pain, No leg pain, No foot pain Skin: No Rash, No Lesions, No Jaundice, No Bruising, No Other Objective Vitals Vital Signs Date Time Temp Pulse Resp B/P (MAP) Pulse Ox O2 Delivery O2 Flow Rate FiO2 07/24/25 09:19 139/82 07/24/25 09:00 98.0 70 18 97 98.0 07/24/25 08:12 Room Air* 0 21 Intake/Output Intake and Output 07/24/25 06:59 Intake Total 2296 ml Balance 2296 ml Intake Oral 1296 ml IV Total 1000 ml # Voids 8 Medications Current Medications Medications Dose Ordered Sig/Davina Route Start Time Stop Time Status Last Admin Dose Admin Acetaminophen/ Hydrocodone Bitart 1 tab Q4HP PRN PO 07/22/25 12:30 Ondansetron HCl 4 mg Q4HP PRN IV 07/22/25 12:30 07/22/25 14:26 4 MG Docusate Sodium 100 mg BIDPRN PRN PO 07/22/25 12:30 Acetaminophen 650 mg Q6HP PRN PO 07/22/25 12:30 07/24/25 10:05 650 MG Tamsulosin HCl 0.4 mg QPM PO 07/23/25 18:00 07/23/25 17:13 0.4 MG Ceftriaxone Sodium 50 ml @ 100 mls/hr DAILY@09 IV 07/23/25 09:00 07/24/25 09:00 100 MLS/HR Ketorolac Tromethamine 30 mg Q6HPRN PRN IV 07/22/25 12:30 07/27/25 12:29 07/24/25 05:40 30 MG Atorvastatin Calcium 20 mg HS PO 07/22/25 22:00 07/23/25 21:35 20 MG Duloxetine HCl 30 mg BID PO 07/22/25 22:00 07/24/25 09:19 30 MG Gabapentin 300 mg TID PO 07/22/25 14:00 07/24/25 05:27 300 MG Lamotrigine 100 mg BID PO 07/22/25 22:00 07/24/25 09:19 100 MG Lorazepam 0.5 mg DAILYP PRN PO 07/22/25 12:45 Buspirone HCl 30 mg BID PO 07/22/25 22:00 07/24/25 09:20 30 MG Hydroxyzine Pamoate 50 mg HS PO 07/22/25 22:00 07/23/25 21:35 50 MG Losartan Potassium 100 mg DAILY PO 07/23/25 10:00 07/24/25 09:19 100 MG Omeprazole 40 mg DAILY PO 07/23/25 10:00 Verapamil HCl 80 mg TID PO 07/22/25 22:00 07/24/25 05:28 80 MG Hydralazine HCl 10 mg Q6HP PRN IV 07/22/25 13:15 Sodium Chloride 1,000 ml @ 100 mls/hr Q10H IV 07/23/25 10:45 07/24/25 08:10 100 MLS/HR Laboratory Results Laboratory Tests 07/24/25 04:57 Chemistry Test 07/24/25 04:57 Calcium Level 9.1 mg/dL (8.7-10.4) Urinalysis Test 07/22/25 08:42 Urine Color Light-orange (Yellow) Urine Clarity Turbid (Clear) H Urine pH 6.0 (5.0-9.0) Urine Specific [place] 1.022 (1.001-1.035) Urine Protein Trace (Negative) H Urine Ketones Negative (Negative) Urine Blood 3+ /uL (Negative) H Urine Nitrite Negative (Negative) Urine Bilirubin Negative (Negative) Urine Urobilinogen Normal mg/dL (Negative) Urine Leukocyte Esterase 1+ /uL (Negative) Urine RBC 108 /hpf (0 - 4) Urine Microscopic WBC 25 /HPF (0-5) H Urine Squamous Epithelial Cells Mod /hpf (<5) Urine Bacteria Mod /hpf (None Seen) H Urine Mucus Few (None Seen) Urine Glucose Normal mg/dL (Normal) Microbiology Microbiology Date/Time Source Procedure Growth Status 07/22/25 09:45 Blood Blood Culture - Preliminary NO GROWTH AFTER 48 HOURS OF INCUBATION. Resulted 07/22/25 08:42 Voided Urine Urine Culture - Preliminary Resulted Labs and/or images reviewed: Labs reviewed by me, Image(s) reviewed by me Assessment/Plan Assessment/Plan Covering for Dr. Haney #1 right renal stone with hydronephrosis: ivf, mannitol, urology consult for Dr. Alva #2 uti with sepsis: iv rocephin, blood cultures negative urine cultures #3 morbid obesity #4 htn #5 anxiety #6 migraines #7 tobacco abuse: Counseling 20 minutes refused to quit ANGELLA Budny at bedside Plan discussed with: Patient My Orders Orders - DHAVAL FLORES MD Procedure Category Date Status Time * Urology Consult CONS 07/24/25 Transmitted 11:16 Date of Service: Jul 24, 2025 Billing Provider: DHAVAL FLORES MD Common Visit Codes: [id number] INP/OBS CARE(HIGH) DHAVAL FLORES MD Jul 24, 2025 11:28
[2025-07-24 12:58] VITALS: BP 174/100; PULSE 72; RESP 20; TEMP 98.4; O2SAT 97
[2025-07-24] MEDS: HYDROcodone-ACET 5/325MG TAB PO PRN (14:37)
[2025-07-24 17:00] VITALS: BP 140/84; PULSE 69; RESP 18; TEMP 98.4; O2SAT 97
[2025-07-24 21:00] VITALS: BP 140/105; PULSE 76; RESP 18; TEMP 98.4; O2SAT 96
[2025-07-24] MEDS: LORazepam 0.5 MG TAB PO PRN (23:46)
[2025-07-25] VITALS (7 sets, daily range): BP systolic 145–182; BP diastolic 85–112; PULSE 61–84; RESP 16–19; TEMP 97.7–98.9; O2SAT 95–98
--- NOTE | 2025-07-25 09:21 | DVHPN2 ---
Reviewed: Care Plan, H&P, Labs, Medications, Previous Orders, Radiology Changes from previous H/P or p: No Changes Eyes: No Pain, No Vision change, No Conjunctivae inflammation, No Eyelid inflammation, No Other, No Redness ENT: No Ear pain, No Ear discharge, No Nose pain, No Nose discharge, No Nose congestion, No Mouth pain, No Mouth swelling, No Throat pain, No Throat swelling, No Other Cardiovascular: No Chest Pain, No Palpitations, No Orthopnea, No Paroxysmal Noc. Dyspnea, No Edema, No Lt Headedness, No Other Respiratory: No Cough, No Dry, No Shortness of breath, No SOB with excertion, No Wheezing, No Hemoptysis, No Pleuritic Pain, No Sputum, No Other Gastrointestinal: Nausea, Vomiting, Abdominal Pain; No Diarrhea, No Constipation, No Melena, No Hematochezia, No Other Genitourinary: No Dysuria, No Frequency, No Incontinence, No Hematuria, No Retention, No Other Musculoskeletal: No other, No neck pain, No shoulder pain, No arm pain; back pain (right flank); No hand pain, No leg pain, No foot pain Skin: No Rash, No Lesions, No Jaundice, No Bruising, No Other Objective Vitals Vital Signs Date Time Temp Pulse Resp B/P (MAP) Pulse Ox O2 Delivery O2 Flow Rate FiO2 07/25/25 05:00 98.2 68 16 170/97 (121) 95 98.2 07/24/25 20:00 Room Air* 0 21 Intake/Output Intake and Output 07/25/25 07:00 Intake Total 5000 ml Output Total 10 ml Balance 4990 ml Intake Oral 2950 ml IV Total 2050 ml Output Stool Total 10 ml # Voids 7 Medications Current Medications Medications Dose Ordered Sig/Davina Route Start Time Stop Time Status Last Admin Dose Admin Acetaminophen/ Hydrocodone Bitart 1 tab Q4HP PRN PO 07/22/25 12:30 07/25/25 05:08 1 TAB Ondansetron HCl 4 mg Q4HP PRN IV 07/22/25 12:30 07/22/25 14:26 4 MG Docusate Sodium 100 mg BIDPRN PRN PO 07/22/25 12:30 Acetaminophen 650 mg Q6HP PRN PO 07/22/25 12:30 07/24/25 10:05 650 MG Tamsulosin HCl 0.4 mg QPM PO 07/23/25 18:00 07/24/25 17:30 0.4 MG Ceftriaxone Sodium 50 ml @ 100 mls/hr DAILY@09 IV 07/23/25 09:00 07/24/25 09:00 100 MLS/HR Ketorolac Tromethamine 30 mg Q6HPRN PRN IV 07/22/25 12:30 07/27/25 12:29 07/25/25 06:26 30 MG Atorvastatin Calcium 20 mg HS PO 07/22/25 22:00 07/24/25 21:16 20 MG Duloxetine HCl 30 mg BID PO 07/22/25 22:00 07/24/25 21:16 30 MG Gabapentin 300 mg TID PO 07/22/25 14:00 07/25/25 05:08 300 MG Lamotrigine 100 mg BID PO 07/22/25 22:00 07/24/25 21:16 100 MG Lorazepam 0.5 mg DAILYP PRN PO 07/22/25 12:45 07/24/25 23:46 0.5 MG Buspirone HCl 30 mg BID PO 07/22/25 22:00 07/24/25 21:19 30 MG Hydroxyzine Pamoate 50 mg HS PO 07/22/25 22:00 07/24/25 21:16 50 MG Losartan Potassium 100 mg DAILY PO 07/23/25 10:00 07/24/25 09:19 100 MG Omeprazole 40 mg DAILY PO 07/23/25 10:00 Verapamil HCl 80 mg TID PO 07/22/25 22:00 07/24/25 21:19 80 MG Hydralazine HCl 10 mg Q6HP PRN IV 07/22/25 13:15 Sodium Chloride 1,000 ml @ 100 mls/hr Q10H IV 07/23/25 10:45 07/25/25 05:41 100 MLS/HR Laboratory Results Laboratory Tests 07/24/25 04:57 Urinalysis Test 07/22/25 08:42 Urine Color Light-orange (Yellow) Urine Clarity Turbid (Clear) H Urine pH 6.0 (5.0-9.0) Urine Specific [place] 1.022 (1.001-1.035) Urine Protein Trace (Negative) H Urine Ketones Negative (Negative) Urine Blood 3+ /uL (Negative) H Urine Nitrite Negative (Negative) Urine Bilirubin Negative (Negative) Urine Urobilinogen Normal mg/dL (Negative) Urine Leukocyte Esterase 1+ /uL (Negative) Urine RBC 108 /hpf (0 - 4) Urine Microscopic WBC 25 /HPF (0-5) H Urine Squamous Epithelial Cells Mod /hpf (<5) Urine Bacteria Mod /hpf (None Seen) H Urine Mucus Few (None Seen) Urine Glucose Normal mg/dL (Normal) Microbiology Microbiology Date/Time Source Procedure Growth Status 07/22/25 09:45 Blood Blood Culture - Preliminary NO GROWTH AFTER 48 HOURS OF INCUBATION. Resulted 07/22/25 08:42 Voided Urine Urine Culture - Final Complete Labs and/or images reviewed: Labs reviewed by me, Image(s) reviewed by me Assessment/Plan Assessment/Plan Covering for Dr. Haney #1 right renal stone with hydronephrosis: ivf, mannitol, urology consult for Dr. Alva pending #2 uti with sepsis: iv rocephin, blood cultures negative urine cultures #3 morbid obesity #4 htn #5 anxiety #6 migraines #7 tobacco abuse: Counseling 20 minutes refused to quit ANGELLA Bundy at bedside Plan discussed with: Patient My Orders Orders - DHAVAL FLORES MD Procedure Category Date Status Time * Urology Consult CONS 07/24/25 Transmitted 11:16 Date of Service: Jul 25, 2025 Billing Provider: DHAVAL FLORES MD Common Visit Codes: [id number] INP/OBS CARE(HIGH) DHAVAL FLORES MD Jul 25, 2025 09:21
--- NOTE | 2025-07-25 09:52 | DVHINCON2 ---
Date of service: Jul 25, [address] Ames Reason for Consultation ureteral stone History of Present Illness History Source: RN Notes, Notes HPI 39 yo female admitted with acute onset right flank pain.Urology consulted for evaluation on ureteral stone. Chart, labs, imaging and vitals reviewed in full. Home Meds Reported Medications Omeprazole (Omeprazole Dr) 40 Mg Cap, 40 MG PO DAILY, CAP 07/22/25 Lamotrigine (Lamotrigine) 100 Mg Tab, 1 TAB PO BID 07/22/25 Verapamil Hcl (Verapamil Hcl) 80 Mg Tab, 1 TAB PO TID 07/22/25 Dextromethorphan Hydrobromide- (Auvelity 45-105 mg) 1 Tab Tab, 1 TAB PO BID 07/22/25 Atogepant (Qulipta) 60 Mg Tab, 1 TAB PO DAILY 07/22/25 Gabapentin (Gabapentin) 300 Mg Cap, 1 CAP PO TID 07/22/25 Duloxetine HCl (Duloxetine HCl) 30 Mg Cap, 1 CAP PO BID 07/22/25 Hydroxyzine Hcl (Hydroxyzine Hcl) 50 Mg Tab, 1 TAB PO HS 07/22/25 Buspirone Hcl (Buspirone Hcl) 30 Mg Tab, 1 TAB PO BID 07/22/25 Lorazepam (ATIVAN TABLET) 0.5 Mg Tb, 1 TAB PO DAILYP PRN 07/22/25 Tizanidine Hydrochloride (Tizanidine Hcl) 4 Mg Tab, 1 TAB PO BIDPRN PRN 07/22/25 Atorvastatin Calcium (ATORVASTATIN CALCIUM) 20 Mg Tab, 1 TAB PO HS 07/22/25 Hctz (Hydrochlorothiazide) 25 Mg Tab, 1 TAB PO QAM 07/22/25 Losartan Potassium (Losartan Potassium) 100 Mg Tab, 1 TAB PO DAILY 07/22/25 Past Medical History Patient Family History: FH: chronic kidney disease G8 MOTHER G8 FATHER Hypertension G8 MOTHER Review of Systems Genitourinary: Pain H&P Exam Vital Signs Vital Signs Date Time Temp Pulse Resp B/P (MAP) Pulse Ox O2 Delivery O2 Flow Rate FiO2 07/25/25 09:33 150/96 07/25/25 05:00 98.2 68 16 95 98.2 07/24/25 20:00 Room Air* 0 21 Labs/Xrays [facility] [id number] [place] [id number] Ph: [phone] DIAGNOSTIC IMAGING Diagnostic Imaging Report : [id number] Signed PATIENT: AN IBARRA ACCT: [id number] UNIT: [id number] : 1985 LOC: ER ROOM / BED: / AGE / SEX: 39 / F ADM STATUS: REG ER SERVICE 3 ORDERING PHYSICIAN: VALENTIN MOJICA PROCEDURE(s): ABPL - CT AB PEL WO CON-NO ORAL OR IV REASON: RIGHT FLANK PAIN ORDER NUMBER(s): [id number], ACCESSION NUMBER(s): [id number] EXAM: CT CT AB PEL WO CON-NO ORAL OR IV HISTORY: RIGHT FLANK PAIN COMPARISON STUDY: None TECHNIQUE: Multidetector CT of the abdomen and pelvis was performed from lung bases to pubic symphysis. Imaging was performed without IV contrast. Axial, coronal, and sagittal multiplanar reformats were obtained from the axial data set by the technologist. RADIATION DOSE: CTDI vol 15.4 mGy. DLP 841.5 mGy.cm FINDINGS: Limited evaluation of the solid organs in the absence of IV contrast. Lungs: Basilar atelectasis/scarring. Liver: Unremarkable. Spleen: Unremarkable. Pancreas: Unremarkable. Gallbladder: Unremarkable. Adrenals: Unremarkable Kidneys: 3 mm calculus situated within the distal right ureter near the ureterovesicular junction with mild upstream hydroureteronephrosis and mild right perinephric stranding. Punctate nonobstructing right renal calculus. The left kidney is unremarkable. Pelvic Viscera: Unremarkable. Vasculature: Unremarkable. Retroperitoneum: Unremarkable. Bowel: No bowel obstruction. The appendix is normal. Musculoskeletal: Unremarkable. Soft tissues: Small fat containing umbilical hernia with minimal stranding. IMPRESSION: 1. 3 mm calculus situated within the distal right ureter near the ureterovesicular junction with mild upstream hydroureteronephrosis and mild right perinephric stranding. 2. Punctate nonobstructing right renal calculus. 3. Additional findings as detailed. ATED BY: FAIZAN WOODS MD DICTATED DATE/TIME: 07/22/25957 SIGNED BY: FAIZAN WOODS MD SIGNED DATE/TIME: 07/22/25957 CC: Labs Test 07/24/25 04:57 07/23/25 06:00 07/22/25 09:44 07/22/25 08:42 Range/Units White Blood Count 10.3 4.4-10.8 10^3/uL Red Blood Count 4.09 4.0-5.20 10^6/uL Hemoglobin 13.3 12.2-16.2 g/dL Hematocrit 38.5 36.0-46.0 % Mean Corpuscular Volume 94.3 80.0-100.0 fL Mean Corpuscular Hemoglobin 32.5 H 28.0-32.0 pg Mean Corpuscular Hemoglobin Concent 34.5 32.0-36.0 g/dL Red Cell Distribution Width 14.4 H 11.8-14.3 % Platelet Count 438 140-450 10^3/uL Mean Platelet Volume 6.0 L 6.9-10.8 fL Neutrophils (%) (Auto) 54.6 37.0-80.0 % Lymphocytes (%) (Auto) 37.4 10.0-50.0 % Monocytes (%) (Auto) 6.1 0.0-12.0 % Eosinophils (%) (Auto) 1.3 0.0-7.0 % Basophils (%) (Auto) 0.6 0.0-2.0 % Neutrophils # (Auto) 5.6 1.6-8.6 10 ^3/uL Lymphocytes # (Auto) 3.9 0.4-5.4 10 ^3/uL Monocytes # (Auto) 0.6 0-1.3 10 ^3/uL Eosinophils # (Auto) 0.1 0-0.8 10 ^3/uL Basophils # (Auto) 0.1 0-0.2 10 ^3/uL Nucleated Red Blood Cells 0.0 % Sodium Level 142 136-145 mmol/L Potassium Level 3.7 3.5-5.1 mmol/L Chloride Level 109 H 98-107 mmol/L Carbon Dioxide Level 25 20-31 mmol/L Anion Gap 8 5-15 Blood Urea Nitrogen 8 L 9-23 mg/dL Creatinine 0.87 0.550-1.02 mg/dL Glomerular Filtration Rate Calc 86 >90 mL/min BUN/Creatinine Ratio 9.2 L 10.0-20.0 Serum Glucose 89 74-106 mg/dL Calcium Level 9.1 8.7-10.4 mg/dL Total Bilirubin 0.4 0.2-1.0 mg/dL Aspartate Amino Transferase (AST) 14 13-40 U/L Alanine Aminotransferase (ALT) 10 7-40 U/L Alkaline Phosphatase 84 46-116 U/L Total Protein 6.2 5.7-8.2 g/dL Albumin 3.9 3.2-4.8 g/dL Lactic Acid Level 1.5 0.4-2.0 mmol/L Urine Color Light-orange Yellow Urine Clarity Turbid H Clear Urine pH 6.0 5.0-9.0 Urine Specific [place] 1.022 1.001-1.035 Urine Protein Trace H Negative Urine Ketones Negative Negative Urine Blood 3+ H Negative /uL Urine Nitrite Negative Negative Urine Bilirubin Negative Negative Urine Urobilinogen Normal Negative mg/dL Urine Leukocyte Esterase 1+ Negative /uL Urine RBC 108 0 - 4 /hpf Urine Microscopic WBC 25 H 0-5 /HPF Urine Squamous Epithelial Cells Mod <5 /hpf Urine Bacteria Mod H None Seen /hpf Urine Mucus Few None Seen Urine Glucose Normal Normal mg/dL Microbiology Date/Time Source Procedure Growth Status 07/22/25 09:45 Blood Blood Culture - Preliminary NO GROWTH AFTER 48 HOURS OF INCUBATION. Resulted 07/22/25 08:42 Voided Urine Urine Culture - Final Complete Assessment/Plan Problem List: (1) Hydronephrosis with ureteral calculus Plan No indication for urologic intervention Continue medical expulsive therapy pain meds prn per primary team increase fluids strain urine outpt f/u with urology This is a passable distal stone with clinical improvement and no infectious p rocess. Management is conservative appropriate for outpatient. Plan discussed with: JANA Headley NP Jul 25, 2025 09:51
--- NOTE | 2025-07-25 10:37 | DVH ---
US BLADDER COMPARISON: None INDICATION: ureteral jets TECHNIQUE: Targeted ultrasound exam of the bladder was performed. FINDINGS: The prevoid volume of the bladder measures 12 cc. Underdistended bladder limits its evaluation. Left ureteral jet visualized. Right ureteral jet not visualized. IMPRESSION: Underdistended bladder. Right ureteral jet not visualized.
[2025-07-25] MEDS: DOCUSATE SOD 100 MG CAP PO PRN (15:00)
[2025-07-25] MEDS: hydrALAZINE HCL 20 MG/ML VL IV PRN (20:42)
[2025-07-26 01:00] VITALS: BP 159/95; PULSE 74; RESP 19; TEMP 98; O2SAT 98
[2025-07-26 05:00] VITALS: BP 143/89; PULSE 77; RESP 18; TEMP 97.9; O2SAT 96
[2025-07-26 09:00] VITALS: BP 148/90; PULSE 73; RESP 18; TEMP 98.3; O2SAT 96
--- NOTE | 2025-07-26 10:12 | DVHPN2 ---
Reviewed: Care Plan, H&P, Labs, Medications, Previous Orders, Radiology Changes from previous H/P or p: No Changes Eyes: No Pain, No Vision change, No Conjunctivae inflammation, No Eyelid inflammation, No Other, No Redness ENT: No Ear pain, No Ear discharge, No Nose pain, No Nose discharge, No Nose congestion, No Mouth pain, No Mouth swelling, No Throat pain, No Throat swelling, No Other Cardiovascular: No Chest Pain, No Palpitations, No Orthopnea, No Paroxysmal Noc. Dyspnea, No Edema, No Lt Headedness, No Other Respiratory: No Cough, No Dry, No Shortness of breath, No SOB with excertion, No Wheezing, No Hemoptysis, No Pleuritic Pain, No Sputum, No Other Gastrointestinal: Nausea, Vomiting, Abdominal Pain; No Diarrhea, No Constipation, No Melena, No Hematochezia, No Other Genitourinary: No Dysuria, No Frequency, No Incontinence, No Hematuria, No Retention, No Other Musculoskeletal: No other, No neck pain, No shoulder pain, No arm pain; back pain (right flank); No hand pain, No leg pain, No foot pain Skin: No Rash, No Lesions, No Jaundice, No Bruising, No Other Objective Vitals Vital Signs Date Time Temp Pulse Resp B/P (MAP) Pulse Ox O2 Delivery O2 Flow Rate FiO2 07/26/25 09:00 98.3 73 18 148/90 (109) 96 98.3 07/25/25 20:00 Room Air* 0 21 Intake/Output Intake and Output 07/26/25 07:00 Intake Total 3026 ml Balance 3026 ml Intake Oral 1976 ml IV Total 1050 ml # Voids 15 # Bowel Movements 1 Medications Current Medications Medications Dose Ordered Sig/Davina Route Start Time Stop Time Status Last Admin Dose Admin Acetaminophen/ Hydrocodone Bitart 1 tab Q4HP PRN PO 07/22/25 12:30 07/26/25 05:39 1 TAB Ondansetron HCl 4 mg Q4HP PRN IV 07/22/25 12:30 07/22/25 14:26 4 MG Docusate Sodium 100 mg BIDPRN PRN PO 07/22/25 12:30 07/26/25 08:54 100 MG Acetaminophen 650 mg Q6HP PRN PO 07/22/25 12:30 07/26/25 00:17 650 MG Tamsulosin HCl 0.4 mg QPM PO 07/23/25 18:00 07/25/25 18:37 0.4 MG Ceftriaxone Sodium 50 ml @ 100 mls/hr DAILY@09 IV 07/23/25 09:00 07/26/25 08:53 100 MLS/HR Ketorolac Tromethamine 30 mg Q6HPRN PRN IV 07/22/25 12:30 07/27/25 12:29 07/26/25 08:55 30 MG Atorvastatin Calcium 20 mg HS PO 07/22/25 22:00 07/25/25 21:16 20 MG Duloxetine HCl 30 mg BID PO 07/22/25 22:00 07/26/25 08:55 30 MG Gabapentin 300 mg TID PO 07/22/25 14:00 07/26/25 05:32 300 MG Lamotrigine 100 mg BID PO 07/22/25 22:00 07/25/25 21:20 100 MG Lorazepam 0.5 mg DAILYP PRN PO 07/22/25 12:45 07/25/25 22:07 0.5 MG Buspirone HCl 30 mg BID PO 07/22/25 22:00 07/26/25 08:55 30 MG Hydroxyzine Pamoate 50 mg HS PO 07/22/25 22:00 07/25/25 21:15 50 MG Losartan Potassium 100 mg DAILY PO 07/23/25 10:00 07/26/25 08:54 100 MG Omeprazole 40 mg DAILY PO 07/23/25 10:00 Verapamil HCl 80 mg TID PO 07/22/25 22:00 07/26/25 05:32 80 MG Hydralazine HCl 10 mg Q6HP PRN IV 07/22/25 13:15 07/25/25 20:42 10 MG Sodium Chloride 1,000 ml @ 100 mls/hr Q10H IV 07/23/25 10:45 07/25/25 15:05 100 MLS/HR Laboratory Results Laboratory Tests 07/24/25 04:57 Urinalysis Test 07/22/25 08:42 Urine Color Light-orange (Yellow) Urine Clarity Turbid (Clear) H Urine pH 6.0 (5.0-9.0) Urine Specific [place] 1.022 (1.001-1.035) Urine Protein Trace (Negative) H Urine Ketones Negative (Negative) Urine Blood 3+ /uL (Negative) H Urine Nitrite Negative (Negative) Urine Bilirubin Negative (Negative) Urine Urobilinogen Normal mg/dL (Negative) Urine Leukocyte Esterase 1+ /uL (Negative) Urine RBC 108 /hpf (0 - 4) Urine Microscopic WBC 25 /HPF (0-5) H Urine Squamous Epithelial Cells Mod /hpf (<5) Urine Bacteria Mod /hpf (None Seen) H Urine Mucus Few (None Seen) Urine Glucose Normal mg/dL (Normal) Microbiology Microbiology Date/Time Source Procedure Growth Status 07/22/25 09:45 Blood Blood Culture - Preliminary NO GROWTH AFTER 72 HOURS OF INCUBATION. Resulted 07/22/25 08:42 Voided Urine Urine Culture - Final Complete Assessment/Plan Assessment/Plan Covering for Dr. Haney #1 3 mm right UVJ stone with hydronephrosis: ivf, mannitol, urology consult for Dr. Artie shields, advised outpatient follow up #2 uti with sepsis: iv rocephin, blood cultures negative urine cultures negative #3 morbid obesity #4 htn #5 anxiety #6 migraines #7 tobacco abuse: Counseling 20 minutes refused to quit Patient says pain is much better, might have passed the stone ANGELLA Bundy at bedside Patient agreeable for discharge today Plan discussed with: Patient Date of Service: Jul 26, 2025 Billing Provider: DHAVAL FLORES MD Common Visit Codes: [id number] INP/OBS CARE(HIGH) DHAVAL FLORES MD Jul 26, 2025 10:12
[2025-07-26] MEDS ORDERED: TAMS-35 PO (10:13)
[2025-07-26] MEDS ORDERED: CIPR-173 PO (10:13)
[2025-07-26] MEDS ORDERED: TRAM-626 PO (10:13)
--- NOTE | 2025-07-26 10:18 | DVHDS2 ---
Discharge Summary Date of Admission Jul 22, 2025 at 12:18 Date of Discharge: Jul 26, 2025 Admitting Diagnosis Right flank pain Wounds: None Labs/Diagnostic Data: Laboratory Results Test 07/24/25 04:57 07/23/25 06:00 07/22/25 09:44 07/22/25 08:42 White Blood Count 10.3 10^3/uL (4.4-10.8) Red Blood Count 4.09 10^6/uL (4.0-5.20) Hemoglobin 13.3 g/dL (12.2-16.2) Hematocrit 38.5 % (36.0-46.0) Mean Corpuscular Volume 94.3 fL (80.0-100.0) Mean Corpuscular Hemoglobin 32.5 pg (28.0-32.0) Mean Corpuscular Hemoglobin Concent 34.5 g/dL (32.0-36.0) Red Cell Distribution Width 14.4 % (11.8-14.3) Platelet Count 438 10^3/uL (140-450) Mean Platelet Volume 6.0 fL (6.9-10.8) Neutrophils (%) (Auto) 54.6 % (37.0-80.0) Lymphocytes (%) (Auto) 37.4 % (10.0-50.0) Monocytes (%) (Auto) 6.1 % (0.0-12.0) Eosinophils (%) (Auto) 1.3 % (0.0-7.0) Basophils (%) (Auto) 0.6 % (0.0-2.0) Neutrophils # (Auto) 5.6 10 ^3/uL (1.6-8.6) Lymphocytes # (Auto) 3.9 10 ^3/uL (0.4-5.4) Monocytes # (Auto) 0.6 10 ^3/uL (0-1.3) Eosinophils # (Auto) 0.1 10 ^3/uL (0-0.8) Basophils # (Auto) 0.1 10 ^3/uL (0-0.2) Nucleated Red Blood Cells 0.0 % Sodium Level 142 mmol/L (136-145) Potassium Level 3.7 mmol/L (3.5-5.1) Chloride Level 109 mmol/L (98-107) Carbon Dioxide Level 25 mmol/L (20-31) Anion Gap 8 (5-15) Blood Urea Nitrogen 8 mg/dL (9-23) Creatinine 0.87 mg/dL (0.550-1.02) Glomerular Filtration Rate Calc 86 mL/min (>90) BUN/Creatinine Ratio 9.2 (10.0-20.0) Serum Glucose 89 mg/dL (74-106) Calcium Level 9.1 mg/dL (8.7-10.4) Total Bilirubin 0.4 mg/dL (0.2-1.0) Aspartate Amino Transferase (AST) 14 U/L (13-40) Alanine Aminotransferase (ALT) 10 U/L (7-40) Alkaline Phosphatase 84 U/L (46-116) Total Protein 6.2 g/dL (5.7-8.2) Albumin 3.9 g/dL (3.2-4.8) Lactic Acid Level 1.5 mmol/L (0.4-2.0) Urine Color Light-orange (Yellow) Urine Clarity Turbid (Clear) Urine pH 6.0 (5.0-9.0) Urine Specific [place] 1.022 (1.001-1.035) Urine Protein Trace (Negative) Urine Ketones Negative (Negative) Urine Blood 3+ /uL (Negative) Urine Nitrite Negative (Negative) Urine Bilirubin Negative (Negative) Urine Urobilinogen Normal mg/dL (Negative) Urine Leukocyte Esterase 1+ /uL (Negative) Urine RBC 108 /hpf (0 - 4) Urine Microscopic WBC 25 /HPF (0-5) Urine Squamous Epithelial Cells Mod /hpf (<5) Urine Bacteria Mod /hpf (None Seen) Urine Mucus Few (None Seen) Urine Glucose Normal mg/dL (Normal) Other Laboratory Tests 07/24/25 04:57 Brief Hx & Hospital Course: 39-year-old female with a history of hypertension anxiety tobacco abuse came in complaining of right flank pain found to have 3 mm right UVJ stone with the hydronephrosis treated with the mannitol IV fluids pain medications Flomax. Urology Dr. Alva was consulted advised no inpatient intervention required advised outpatient follow up for cystoscopy patient feels better with less pain afebrile ANGELLA Bundy at bedside. Discharged home on Cipro Flomax and tramadol. Advised to follow up with Urology in one week Consults/Reason for consult Urology Dr. Alva Operations or Procedures CT abdomen pelvis without contrast Renal ultrasound Condition at Discharge: Fair Final Diagnosis/Problems List #1 3 mm right UVJ stone with hydronephrosis: ivf, mannitol, urology consult for Dr. Alva appreciated, advised outpatient follow up #2 uti with sepsis: iv rocephin, blood cultures negative urine cultures negative #3 morbid obesity #4 htn #5 anxiety #6 migraines #7 tobacco abuse: Counseling 20 minutes refused to quit Discharge Disposition: Home Discharge Instruct/Medications Diet: Regular Activity: Light activity Follow Up/Referral: Drink lot of fluids Follow up with the Urology Dr. Alva in one week Medications: Cipro Tramadol Flomax Transmitted to [facility] Scheduled Atogepant (Qulipta), 1 TAB PO DAILY, (Reported) Atorvastatin Calcium (Atorvastatin Calcium), 1 TAB PO HS, (Reported) Buspirone Hcl (Buspirone Hcl), 1 TAB PO BID, (Reported) Ciprofloxacin Hcl (Cipro), 1 TAB PO BID Dextromethorphan Hydrobromide- (Auvelity 45-105 mg), 1 TAB PO BID, (Reported) Duloxetine HCl (Duloxetine HCl), 1 CAP PO BID, (Reported) Gabapentin (Gabapentin), 1 CAP PO TID, (Reported) Hctz (Hydrochlorothiazide), 1 TAB PO QAM, (Reported) Hydroxyzine Hcl (Hydroxyzine Hcl), 1 TAB PO HS, (Reported) Lamotrigine (Lamotrigine), 1 TAB PO BID, (Reported) Losartan Potassium (Losartan Potassium), 1 TAB PO DAILY, (Reported) Omeprazole (Omeprazole Dr), 40 MG PO DAILY, (Reported) Tamsulosin Hcl (Flomax), 1 CAP PO DAILY Verapamil Hcl (Verapamil Hcl), 1 TAB PO TID, (Reported) Scheduled PRN Lorazepam (Ativan Tablet), 1 TAB PO DAILYP PRN, (Reported) Tizanidine Hydrochloride (Tizanidine Hcl), 1 TAB PO BIDPRN PRN, (Reported) Tramadol HCl (Tramadol HCl), 50 MG PO QID PRN 35 (Time taken for discharge summary 35 minutes) Discharge Statement: "Patient was advised to return to the ER or call 911 if any headaches, dizziness, shortness of breath, chest pain, abdominal pain, bleeding, fevers, or worsening of medical condition. Patient was counseled about treatment plan, medications, possible side effects, patientverbalized understanding. All questions were answered to the best of my ability. This discharge took greater then 30 minutes in planning, reviewing documentation, counseling the patient, and discussing with other team members." ASSESSMENT ASSESSMENT Hospital Course Uneventful Assessment #1 3 mm right UVJ stone with hydronephrosis: ivf, mannitol, urology consult for Dr. Artie shields, advised outpatient follow up #2 uti with sepsis: iv rocephin, blood cultures negative urine cultures negative #3 morbid obesity #4 htn #5 anxiety #6 migraines #7 tobacco abuse: Counseling 20 minutes refused to quit Date of Service: Jul 26, 2025 Billing Provider: DHAVAL FLORES MD Common Visit Codes: [id number] DISCH DAY >30min DHAVAL FLORES MD Jul 26, 2025 10:18
[2025-07-26 10:56] VITALS: BP 148/90; PULSE 73; RESP 18; TEMP 98.3; O2SAT 96
== END 2025-07-26 12:16 | disposition home or self-care (01) | DRG 720 ==
LOC: ER 08:24 → OVERFLOW 12:18 → CENTRAL 15:18
PROVIDERS: ADMIT Family Medicine; ATTEND Family Medicine
DX: A41.9 Sepsis, unspecified organism (principal); N13.6 Pyonephrosis; I10 Essential (primary) hypertension; E66.01 Morbid (severe) obesity due to excess calories; F31.9 Bipolar disorder, unspecified; E78.5 Hyperlipidemia, unspecified; F41.9 Anxiety disorder, unspecified; F43.10 Post-traumatic stress disorder, unspecified; G43.909 Migraine, unspecified, not intractable, without status migrainosus; F90.9 Attention-deficit hyperactivity disorder, unspecified type; Z79.899 Other long term (current) drug therapy; Z82.49 Family history of ischemic heart disease and other diseases of the circulatory system; Z84.19 Family history of other disorders of kidney and ureter; Z72.0 Tobacco use; Z68.38 Body mass index [BMI] 38.0-38.9, adult
CPT/HCPCS: 36415; 74176; 76857; 80048; 80053; 81001; 83605; 85025; 87040; 87086; G0378; J1885; J2405